=== PATIENT | female | born 1990 | race Caucasian/White ===

== ENCOUNTER 2019-08-10 23:10 | Emergency (ER) | payer BC, OTHER ==
[2019-08-10] MEDS ORDERED: METOCLOPRAMIDE 5 MG/ML 2 ML VIAL IVP STA (23:27)
[2019-08-10] MEDS ORDERED: SODIUM CHLORIDE 0.9% 1,000 ML IV ONE (23:27)
[2019-08-10] MEDS ORDERED: diphenhydrAMINE 50 MG/ML 1 ML VIAL IVP STA (23:27)
[2019-08-10] MEDS ORDERED: SODIUM CHLORIDE 0.9% 500 ML 500 ML IV ONE (23:27)
[2019-08-10 23:56] LABS: Basophils # (A) 0.1 k/uL (0-0.2); Basophils % (A) 1 %; Eosinophils # (A) 0.1 k/uL (0-0.7); Eosinophils % (A) 1 %; HCT 40.3 % (34.0-46.0); HGB 14.2 gm/dL (11.4-16.0); Lymphocytes # (A) 1.3 k/uL (1.0-4.8); Lymphocytes % (A) 14 %; MCH 32.6 pg (25.0-35.0); MCHC 35.2 g/dL (31.0-37.0); MCV 92.8 fL (80.0-100.0); Mean Platelet Volume 6.2; Monocytes # (A) 0.5 k/uL (0-1.0); Monocytes % (A) 5 %; Neutrophils # (A) 7.4 k/uL (1.3-7.7); Neutrophils % (A) 77 %; Platelet Count 177 k/uL (150-450); RBC 4.34 m/uL (3.80-5.40); RDW 12.4 % (11.5-15.5); WBC 9.6 k/uL (3.8-10.6)
[2019-08-11 00:08] LABS: Appearance,Urine Clear (Clear); Bacteria,Urine Occasional /hpf; Bilirubin,Urine Negative (Negative); Blood,Urine Negative (Negative); Color,Urine Yellow; Glucose,Urine (UA) Negative (Negative); Ketones,Urine Negative (Negative); Leukocyte Esterase,Urine Trace (Negative); Mucus,Urine Rare /hpf; Nitrite,Urine Negative (Negative); Protein,Urine Negative (Negative); RBC,Urine 1 /hpf (0-5); Squamous Epithelial Cell,Urine 14 /hpf (0-4); Urobilinogen,Urine <2.0 mg/dL (<2.0); WBC,Urine 2 /hpf (0-5)
[2019-08-11 00:14] LABS: ALT 14 U/L (9-52); AST 20 U/L (14-36); African American GFR (CKD) >90 (>60 ml/min/1.73 sqM); Albumin 4.4 g/dL (3.5-5.0); Alkaline Phosphatase 54 U/L (38-126); Amylase 41 U/L (30-110); Anion Gap 9 mmol/L; Blood Urea Nitrogen 8 mg/dL (7-17); Calcium 9.3 mg/dL (8.4-10.2); Carbon Dioxide 23 mmol/L (22-30); Chloride 104 mmol/L (98-107); Glucose 105 mg/dL (74-99); Sodium 136 mmol/L (137-145); Total Bilirubin 0.8 mg/dL (0.2-1.3); Total Protein 7.3 g/dL (6.3-8.2)
--- NOTE | 2019-08-11 00:40 | ED ---
General Adult HPI - General Chief complaint: ENT Stated complaint: 8 wks preg, sore throat Time Seen by Provider: 08/10/19 23:18 Source: patient Mode of arrival: ambulatory Limitations: no limitations - History of Present Illness Initial comments: 21-year-old female patient presents to the emergency department today for evaluation of vomiting and sore throat. Patient states she is approximately 8-9 weeks . States she's been having a lot of morning sickness. States today she's been unable to keep down any food or fluids. States that she's had several episodes of vomiting today and now has a sore throat. States she has increased pain with swallowing. States she did attempt to take Zofran however was unable to keep it down. She denies any abdominal pain. Denies any abnormal vaginal bleeding or discharge. Denies any low back pain. Denies any hematuria, dysuria, urinary frequency, urinary urgency. Patient denies any recent rash, fever, chills, shortness breath, chest pain, diarrhea, constipation, back pain, numbness, tingling, dizziness, weakness, headache, visual changes, or any other complaints. - Related Data Previous Rx's Medication Instructions Recorded Famotidine [Pepcid] 20 mg PO HS #30 tablet 08/11/19 Metoclopramide [Reglan] 10 mg PO Q8H PRN #30 tab 08/11/19 Allergies Allergy/AdvReac Type Severity Reaction Status Date / Time fluconazole [From Diflucan] Allergy Unknown Verified 08/10/19 23:16 Review of Systems ROS Statement: Those systems with pertinent positive or pertinent negative responses have been documented in the HPI. ROS Other: All systems not noted in ROS Statement are negative. Past Medical History Past Medical History: No Reported History History of Any Multi-Drug Resistant Organisms: None Reported Past Surgical History: No Surgical Hx Reported Past Psychological History: No Psychological Hx Reported Smoking Status: Former smoker Past Alcohol Use History: None Reported Past Drug Use History: None Reported General Exam Limitations: no limitations General appearance: alert, in no apparent distress, other (This is a well- developed, well-nourished adult female patient in no acute distress. Vital signs upon presentation are temperature 98.1F, pulse 71, respirations 16, blood pressure 119/77, pulse ox 99% on room air.) Eye exam: Present: normal appearance, PERRL, EOMI. Absent: scleral icterus, conjunctival injection, periorbital swelling ENT exam: Present: mucous membranes moist, TM's normal bilaterally. Absent: normal exam, normal oropharynx (Pharyngeal erythema) Neck exam: Present: normal inspection. Absent: tenderness, meningismus, lymphadenopathy Respiratory exam: Present: normal lung sounds bilaterally. Absent: respiratory distress, wheezes, rales, rhonchi, stridor Cardiovascular Exam: Present: regular rate, normal rhythm, normal heart sounds. Absent: systolic murmur, diastolic murmur, rubs, gallop, clicks GI/Abdominal exam: Present: soft, normal bowel sounds. Absent: distended, tenderness, guarding, rebound, rigid Neurological exam: Present: alert, oriented X3, CN II-XII intact Psychiatric exam: Present: normal affect, normal mood Skin exam: Present: warm, dry, intact, normal color. Absent: rash Course Vital Signs 08/10/19 08/11/19 23:12 01:13 Temperature 98.1 F 97.1 F L Pulse Rate 71 68 Respiratory 16 18 Rate Blood Pressure 119/77 108/63 O2 Sat by Pulse 99 99 Oximetry Medical Decision Making - Medical Decision Making 29-year-old female patient presents to the emergency department today for evalu ation of sore throat and vomiting. Patient is 8-9 weeks . Denies abdominal pain, vaginal discharge, vaginal bleeding. She is afebrile. Labs reviewed and are unremarkable. She is given IV fluids and nausea medication. No further vomiting in the emergency department. She'll be discharged home with this and follow-up the primary care physician for recheck in 1-2 days which is instructed to follow-up with her [facility] SPECIALIST for recheck in 12 days. Return parameters were discussed in detail. She verbalizes understanding and agrees with this plan. - Lab Data Result diagrams: 08/10/19 23:36 08/10/19 23:36 Lab Results 08/10/19 08/10/19 08/10/19 Range/Units 23:36 23:36 23:36 WBC 9.6 (3.8-10.6) k/uL RBC 4.34 (3.80-5.40) m/uL Hgb 14.2 (11.4-16.0) gm/dL Hct 40.3 (34.0-46.0) % MCV 92.8 (80.0-100.0) fL MCH 32.6 (25.0-35.0) pg MCHC 35.2 (31.0-37.0) g/dL RDW 12.4 (11.5-15.5) % Plt Count 177 (150-450) k/uL Neutrophils % 77 % Lymphocytes % 14 % Monocytes % 5 % Eosinophils % 1 % Basophils % 1 % Neutrophils # 7.4 (1.3-7.7) k/uL Lymphocytes # 1.3 (1.0-4.8) k/uL Monocytes # 0.5 (0-1.0) k/uL Eosinophils # 0.1 (0-0.7) k/uL Basophils # 0.1 (0-0.2) k/uL Sodium 136 L (137-145) mmol/L Potassium 4.0 (3.5-5.1) mmol/L Chloride 104 (98-107) mmol/L Carbon Dioxide 23 (22-30) mmol/L Anion Gap 9 mmol/L BUN 8 (7-17) mg/dL Creatinine 0.45 L (0.52-1.04) mg/dL Est GFR (CKD-EPI)AfAm >90 (>60 ml/min/1.73 sqM) Est GFR (CKD-EPI)NonAf >90 (>60 ml/min/1.73 sqM) Glucose 105 H (74-99) mg/dL Calcium 9.3 (8.4-10.2) mg/dL Total Bilirubin 0.8 (0.2-1.3) mg/dL AST 20 (14-36) U/L ALT 14 (9-52) U/L Alkaline Phosphatase 54 (38-126) U/L Total Protein 7.3 (6.3-8.2) g/dL Albumin 4.4 (3.5-5.0) g/dL Amylase 41 (30-110) U/L Lipase 75 (23-300) U/L Urine Color Yellow Urine Appearance Clear (Clear) Urine pH 6.0 (5.0-8.0) Ur Specific [place] 1.010 (1.001-1.035) Urine Protein Negative (Negative) Urine Glucose (UA) Negative (Negative) Urine Ketones Negative (Negative) Urine Blood Negative (Negative) Urine Nitrite Negative (Negative) Urine Bilirubin Negative (Negative) Urine Urobilinogen <2.0 (<2.0) mg/dL Ur Leukocyte Esterase Trace H (Negative) Urine RBC 1 (0-5) /hpf Urine WBC 2 (0-5) /hpf Ur Squamous Epith Cells 14 H (0-4) /hpf Urine Bacteria Occasional H (None) /hpf Urine Mucus Rare H (None) /hpf Disposition Clinical Impression: Pharyngitis, Morning sickness Disposition: HOME SELF-CARE Condition: Good Instructions (If sedation given, give patient instructions): Nausea and Vomiting in (ED), Pharyngitis (ED) Additional Instructions: Start with clear liquid diet and advance as tolerated. Take medications as directed. Follow-up with your primary care physician and [facility] SPECIALIST for recheck as soon as possible. Return to the emergency department immediately for any new, worsening, or concerning symptoms per Prescriptions: Famotidine [Pepcid] 20 mg PO HS #30 tablet Metoclopramide [Reglan] 10 mg PO Q8H PRN #30 tab PRN Reason: Vomiting Is patient prescribed a controlled substance at d/c from ED?: No Referrals: Imani Park MD [Primary Care Provider] - 1-2 days Justin Pacheco MD [STAFF PHYSICIAN] - 1-2 days Time of Disposition: 01:19
[2019-08-11 01:14] VITALS: BP 108/63; PULSE 68; RESP 18; TEMP 97.1
== END 2019-08-11 01:33 | disposition home or self-care (01) ==
LOC: EC 23:10
DX: O99.511 Diseases of the respiratory system complicating pregnancy, first trimester (principal); J02.9 Acute pharyngitis, unspecified; O21.0 Mild hyperemesis gravidarum; Z3A.09 9 weeks gestation of pregnancy; Z88.3 Allergy status to other anti-infective agents; Z87.891 Personal history of nicotine dependence
CPT/HCPCS: 36415; 80053; 82150; 83690; 85025; 99283; 96374; 96375; 96361; J1200; J2765; 81001

== ENCOUNTER 2020-03-10 05:59 | Inpatient (IN) | payer OTHER ==
[2020-03-09 13:37] VITALS: BMI 34.1
--- NOTE | 2020-03-09 16:49 | P.HPOB ---
History of Present Illness H&P Date: 03/09/20 Chief Complaint: Primary for macrosomia. This patient is a pleasant 30-year-old 1 para 0 female estimated date of confinement 03/17/2020 estimated gestational age 39-0/7 weeks who presents to labor and delivery for primary section secondary to macrosomia. Patient had an ultrasound done approximately 1 week ago showed estimated weight at 9 lbs. 13 oz.+ or minus half a pound. Due to the large size of this baby patient was offered a section for delivery due to the risk of vaginal delivery and she wishes to proceed. Patient's care initially was complicated by an ultrasound which showed some questionable echogenic bowel and prominent left ventricle. Level III ultrasound in maternal medicine ultrasound however was completely normal. Patient also was on a large dose of iodine in the first and second trimester which was given to her by her chiropractor. Upon finding this out myself and maternal- medicine instructed her to stop immediately. Patient's glucose testing has been normal. It appears this macrosomia secondary to genetics. Review of Systems Genitourinary: Reports Menstruation: Reports amenorrhea Past Medical History Past Medical History: GERD/Reflux Additional Past Medical History / Comment(s): frequent UTI's/kidney infections History of Any Multi-Drug Resistant Organisms: None Reported Past Surgical History: No Surgical Hx Reported Additional Past Surgical History / Comment(s): oral surgery Past Anesthesia/Blood Transfusion Reactions: No Reported Reaction Past Psychological History: No Psychological Hx Reported Smoking Status: Former smoker Past Alcohol Use History: None Reported Past Drug Use History: Marijuana - Past Family History Sister(s) Family Medical History: Pulmonary Embolus Medications and Allergies Home Medications Medication Instructions Recorded Confirmed Type Pnv No.95/Ferrous Fum/Folic AC 1 each PO DAILY 03/09/20 03/09/20 History [ Multivitamin Tablet] Allergies Allergy/AdvReac Type Severity Reaction Status Date / Time fluconazole [From Diflucan] Allergy swelling,hives,itching Verified 03/09/20 13:31 all over Exam Intake and Output 03/09/20 03/09/20 03/09/20 06:59 14:59 22:59 Other: Weight 100.244 kg - OBG Physical Exam Vulva: both: normal Vagina: normal moisture, no discharge Cervix: no lesion, no discharge Uterus: enlarged (Fundal height 43 cm) Results blood work shows she is O-, rubella immune, RPR nonreactive, hepatitis B negative, Glucola was normal, RhoGAM was given on December 14. Level III ultrasound was normal. Most recent ultrasound about a week ago showed estimated weight at 9 lbs. 13 oz. Assessment and Plan Assessment: This is a pleasant 30-year-old 1 para 0 female 39-0/7 weeks gestation with excessive macrosomia estimated weight between 9-1/2 and 10-1/2 pounds. Patient I have discussed options for delivery we've elected to proceed with primary section for delivery. She does understand the risks of the surgery including risks of infection, bleeding, possible injury bowel, bladder, vessels, and/or other organs. All the patient's questions are answered and a written consent is obtained. (1) 39 weeks gestation of Status: Acute Code(s): Z3A.39 - 39 WEEKS GESTATION OF SNOMED Code(s): 43789916 (2) macrosomia Status: Acute Code(s): O36.60X0 - MATERNAL CARE FOR EXCESS GROWTH, UNSP TRIMESTER, UNSP SNOMED Code(s): 93083081 (3) Rh negative status during Status: Acute Code(s): O26.899 - OTH RELATED CONDITIONS, UNSPECIFIED TRIMESTER; Z67.91 - UNSPECIFIED BLOOD TYPE, RH NEGATIVE SNOMED Code(s): 089049978
[2020-03-10] MEDS ORDERED: LACTATED RINGERS 1,000 ML IV SCH ×2 (06:15→08:45)
[2020-03-10] MEDS ORDERED: CITRIC ACID-SODIUM CITRATE 15 ML CUP PO ONE (06:15)
[2020-03-10] MEDS ORDERED: LACTATED RINGERS 1,000 ML IV ONE (06:15)
[2020-03-10 07:05] LABS: Basophils % (A) 0 %; Eosinophils # (A) 0.1 k/uL (0-0.7); Eosinophils % (A) 1 %; HCT 36.3 % (34.0-46.0); HGB 11.8 gm/dL (11.4-16.0); Lymphocytes # (A) 1.5 k/uL (1.0-4.8); Lymphocytes % (A) 15 %; MCH 31.4 pg (25.0-35.0); MCHC 32.6 g/dL (31.0-37.0); MCV 96.3 fL (80.0-100.0); Mean Platelet Volume 9.6; Monocytes # (A) 0.5 k/uL (0-1.0); Monocytes % (A) 5 %; Neutrophils # (A) 7.8 k/uL (1.3-7.7); Neutrophils % (A) 77 %; Platelet Count 168 k/uL (150-450); RBC 3.77 m/uL (3.80-5.40); RDW 13.5 % (11.5-15.5)
[2020-03-10] MEDS ORDERED: KETOROLAC 30 MG/ML 1 ML VIAL ONE (07:56)
[2020-03-10] MEDS ORDERED: ONDANSETRON 4 MG/2 ML VIAL ONE (07:56)
[2020-03-10] MEDS ORDERED: MORPHINE SULFATE (PF) 0.3 MG/0.3 ML SYR ONE (07:56)
[2020-03-10] MEDS ORDERED: OXYTOCIN 10 UNIT/ML 1 ML VIAL ONE (07:56)
[2020-03-10] MEDS ORDERED: SIMETHICONE 80 MG CHEWABLE PO PRN (08:44)
[2020-03-10] MEDS ORDERED: IBUPROFEN 600 MG TAB PO PRN (08:44)
[2020-03-10] MEDS ORDERED: diphenhydrAMINE 50 MG/ML 1 ML VIAL IVP PRN (08:44)
[2020-03-10] MEDS ORDERED: Rhogam IMMUNE GLOBULIN 1,500 UNIT/1 ML IM ONE (08:44)
[2020-03-10] MEDS ORDERED: diphenhydrAMINE 25 MG CAP PO PRN (08:44)
[2020-03-10] MEDS ORDERED: ACETAMINOPHEN TAB 325 MG TAB PO PRN (08:44)
[2020-03-10] MEDS ORDERED: HYDROcodone/APAP 5-325MG 1 EACH TAB PO PRN (08:44)
[2020-03-10] MEDS ORDERED: NALOXONE 0.4 MG/ML 1 ML VIAL IV PRN (08:44)
[2020-03-10] MEDS ORDERED: ONDANSETRON 4 MG/2 ML VIAL IVP PRN (08:44)
[2020-03-10] MEDS ORDERED: ZOLPIDEM 5 MG TAB PO PRN (08:44)
[2020-03-10] MEDS ORDERED: METOCLOPRAMIDE 5 MG/ML 2 ML VIAL IVP PRN (08:44)
[2020-03-10] MEDS ORDERED: LANOLIN CREAM 5 GM TUBE TOPICAL PRN (08:44)
[2020-03-10] MEDS ORDERED: OXYTOCIN 20 UNITS/1000 ML NS 1,000 ML IV SCH (08:45)
--- NOTE | 2020-03-10 09:05 | P.OP ---
Date of Procedure: 03/10/20 Preoperative Diagnosis: #1: 39-0/7 weeks . #2: macrosomia. Postoperative Diagnosis: Same, moderate meconium-stained fluid, nuchal cord 1 Procedure(s) Performed: Primary low transverse section Anesthesia: spinal Surgeon: Justin Pacheco Chief Of Party #1: Jayde Gómez Estimated Blood Loss (ml): 1,450 Pathology: other (Placenta) Condition: stable Disposition: floor Indications for Procedure: Please see dictated H&P for intimate details of this patient's admission. Brief summary this is a pleasant 30-year-old 1 para 0 female estimated gestational age 39 weeks who presents to labor and delivery for primary section due to suspected macrosomia. Patient had a ultrasound done last week which showed estimated weight of 9 lbs. 13 oz. which is much greater than the 90th percentile. I discussed this with the patient and we elected to proceed with primary section for delivery. Patient understands this surgery and risks including risks of infection, bleeding, possible injury to bowel, bladder, vessels, and/or other organs. Patient understands risk of DVT and pulmonary embolism. All the patient's questions are answered and a written consent is obtained. Operative Findings: This is a vigorous viable male Apgars 9 and 9 delivery time is 0812 hours. 's weight was 10 lbs. 3 oz. which is 4620 g. There was a nuchal cord 1 and moderate meconium-stained fluid. Description of Procedure: This patient has a Pierson catheter placed to straight drain. She is subsequently taken to the operating room where she sat up and spinal anesthetic is administered without incident. With an adequate level of anesthesia she has abdominal prep and drape. Scalpels taken Pfannenstiel skin incision is made. A second scalpel is taken down the fascia and the fascia scored with a knife. Fascial incision extended bilaterally using the [place] scissors. Fascia is dissected off the rectus muscle sharply. Rectus muscles are and the peritoneum identified and entered sharply. Peritoneal incision extended superior and inferior without difficulty. Bladder blade is then placed. Bladder peritoneum was taken sharply off the lower uterine segment. Scalpels and taken a low transverse uterine incision is made. Using a hemostat I into the uterine cavity bluntly. There is loss of a copious amount of moderate meconium-stained fluid. The uterine incision extended bluntly. The infant's head is then guided through the incision with fundal pressure. Mouth and nares are bulb suctioned. There is a nuchal cord which is loose and reduced. This done the rest this 's body is delivered with fundal pressure. This is a vigorous viable male Apgars 9 and 9 delivery time was 0812 hours. Infant has spontaneous respiration and good cry. After delivery of the infant the umbilical cord is doubly clamped and cut and the baby is handed off to the nurses in attendance. Placenta is then manually extracted intact. Uterus then externalized and uterine incision demarcated with Yoon clamps. Uterine cavity is cleared of all debris. Uterine incision is then closed using 0 Vicryl running locked fashion 2 layers. Excellent hemostasis is noted. Bladder peritoneum was then reapproximated using a 3-0 Vicryl. Excess fluid is removed from the abdomen and pelvis. Uterus tubes and ovaries appear normal for term gestation. Uterus placed back into the abdomen. Parietal peritoneum was then identified and closed using 0 Vicryl running fashion. Rectus muscles reapproximated in 0 Vicryl interrupted fashion. Fascia is then closed using a 0 PDS in running fashion. Fascial incision is intact and hemostatic. Subcutaneous tissues then closed using a 3-0 Vicryl. Skin is and closed using sal. All counts are correct 3. No complications. Quantitative estimated blood loss approximate 1450 mL.
[2020-03-10] MEDS ORDERED: METHYLERGONOVINE 0.2 MG/ML 1 ML AMP IM ONE (09:46)
--- NOTE | 2020-03-10 10:18 | P.PN ---
Progress Note - Text Progress Note Date: 03/10/20 Patient developed some atony and in the room I was able to express several large clots with total estimated blood loss of 800 at that time. Patient given a dose of Methergine and continued IV Pitocin. I was able to continue massage and the bleeding subsided. Vital signs are stable. Patient is relatively asymptomatic at this time. Plan is to continue watch closely, continue some oral Methergine for 24 hours, and began some oral iron tomorrow.
[2020-03-10] MEDS: METHYLERGONOVINE 0.2 MG TAB PO SCH ×2 (14:13→22:34)
[2020-03-10] MEDS: KETOROLAC 30 MG/ML 1 ML VIAL IVP PRN ×2 (14:18→20:34)
[2020-03-10] MEDS: SENNOSIDES-DOCUSATE SODIUM 1 EACH TAB PO SCH (23:37)
[2020-03-11 05:43] VITALS: RESP 16
[2020-03-11 05:47] LABS: Basophils % (A) 0 %; Eosinophils # (A) 0.1 k/uL (0-0.7); Eosinophils % (A) 1 %; HCT 28.6 % (34.0-46.0); Lymphocytes # (A) 1.3 k/uL (1.0-4.8); Lymphocytes % (A) 12 %; MCHC 32.8 g/dL (31.0-37.0); MCV 97.6 fL (80.0-100.0); Mean Platelet Volume 8.8; Monocytes # (A) 0.7 k/uL (0-1.0); Monocytes % (A) 7 %; Neutrophils % (A) 78 %; Platelet Count 148 k/uL (150-450); RBC 2.93 m/uL (3.80-5.40); RDW 13.6 % (11.5-15.5); WBC 10.2 k/uL (3.8-10.6)
[2020-03-11 05:55] LABS: HGB 9.4 gm/dL (11.4-16.0)
--- NOTE | 2020-03-11 07:49 | P.PNOBGPC ---
Subjective - Subjective Principal diagnosis: Status post primary low transverse day #1 Interval history: Patient seen and examined. Denies nausea, vomiting, chest pain, shortness of breath or any calf pain. Patient reports: Reports appetite normal, Reports voiding normally, Reports pain well controlled, Reports ambulating normally [place]: doing well Objective - Vital Signs Latest vital signs: Vital Signs Temp Pulse Resp BP Pulse Ox 03/11/20 04:00 97.6 F 83 16 117/68 98 03/10/20 23:23 74 18 03/10/20 23:20 97.5 F L 74 18 105/65 98 03/10/20 20:00 97.6 F 87 16 123/72 98 03/10/20 16:00 97.0 F L 80 18 122/67 98 03/10/20 12:00 96 F L 78 20 121/67 100 03/10/20 10:40 70 18 127/67 99 03/10/20 10:10 87 18 152/65 100 03/10/20 09:40 68 18 110/75 100 03/10/20 09:25 64 18 108/69 100 03/10/20 09:05 98.0 F 76 18 114/70 100 03/10/20 08:55 72 20 120/67 100 03/10/20 08:40 69 18 141/68 100 Intake and Output 03/10/20 03/11/20 03/11/20 22:59 06:59 14:59 Intake Total 1000 200 Output Total 450 400 Balance 550 -200 Intake: IV 1000 200 Output: Urine 450 400 - Exam Lungs: bilateral: normal Chest: Normal S1, Normal S2 Extremities: Present: normal Abdomen: Present: normal appearance, soft. Absent: distention, tenderness Incision: Present: normal, dry, intact Uterus: Present: normal, firm - Labs Labs: Abnormal Lab Results - Last 24 Hours (Table) 03/11/20 Range/Units 05:30 RBC 2.93 L (3.80-5.40) m/uL Hgb 9.4 L D (11.4-16.0) gm/dL Hct 28.6 L (34.0-46.0) % Plt Count 148 L (150-450) k/uL Neutrophils # 8.0 H (1.3-7.7) k/uL Assessment and Plan (1) Status post primary low transverse section Current Visit: Yes Status: Acute Code(s): Z98.891 - HISTORY OF UTERINE SCAR FROM PREVIOUS SURGERY SNOMED Code(s): 400061818 Plan: 1. By mouth pain medication 2. Increase ambulation 3. Regular diet
--- NOTE | 2020-03-11 07:58 | P.PN ---
Progress Note - Text Progress Note Date: 03/11/20 (665) Anesthesia Postop day 1 Subjective: Status Post section with Duramorph. Patient seen and examined. Doing well without complaint. VAS 0-2 out of 10. No nausea or vomiting. Mild pruritus tolerable.. Afebrile. Gross lower extremity strength intact. Spinal site intact without induration. Without apparent anesthetic complications. Objective: Vital signs reviewed Heart: Regular Rate Lungs: Good chest excursion Abdomen: Appears nondistended Assessment: Status post with Duramorph postop day 1 Plan: Continue current care with your medical management.
[2020-03-11] MEDS: SENNOSIDES-DOCUSATE SODIUM 1 EACH TAB PO SCH ×2 (08:52→19:47)
[2020-03-11] MEDS: METHYLERGONOVINE 0.2 MG TAB PO SCH (08:52)
[2020-03-11] MEDS ORDERED: IRON AG/C/B12/CA/SUC.ACID/STOM 1 EACH TAB PO SCH (09:00)
--- NOTE | 2020-03-12 03:30 | P.DS ---
Providers Date of admission: 03/10/20 05:59 Expected date of discharge: 03/12/20 Attending physician: Justin Pacheco Primary care physician: Imani Park - Discharge Diagnosis(es) (1) Status post primary low transverse section Current Visit: Yes Status: Acute Hospital Course: Pt presented for 1*LTCS. She underwent this procedure without complications. Her po course was uneventful. She denies N/V, F/C, CP, SOB or calf pain. she will be discharged home PPD #1 in stable condition to follow up with Dr Pacheco in 1 week. Plan - Discharge Summary Discharge Rx Participant: Yes New Discharge Prescriptions: New Ibuprofen [Motrin] 600 mg PO Q6HR PRN #40 tab PRN Reason: Mild Pain Or Fever >= 100.5 Iron Ag/C/B12/Ca/Suc.acid/Stom [Multigen] 1 each PO DAILY #30 tab HYDROcodone/APAP 5-325MG [[place] 5-325] 1 each PO Q4HR PRN #18 tab PRN Reason: Moderate Pain No Action Pnv No.95/Ferrous Fum/Folic AC [ Multivitamin Tablet] 1 each PO DAILY Discharge Medication List Pnv No.95/Ferrous Fum/Folic AC [ Multivitamin Tablet] 1 each PO DAILY 03/09/20 [History] HYDROcodone/APAP 5-325MG [[place] 5-325] 1 each PO Q4HR PRN #18 tab 03/10/20 [Rx] Ibuprofen [Motrin] 600 mg PO Q6HR PRN #40 tab 03/10/20 [Rx] Iron Ag/C/B12/Ca/Suc.acid/Stom [Multigen] 1 each PO DAILY #30 tab 03/10/20 [Rx] Follow up Appointment(s)/Referral(s): Justin Pacheco MD [STAFF PHYSICIAN] - 1 Week Patient Instructions/Handouts: Iron Deficiency Anemia (DC), (DC) Activity/Diet/Wound Care/Special Instructions: No strenuous activities or heavy lifting for 6 weeks. No intercourse or anything per vagina for 6 weeks. Please call if any fever, chills, excessive vaginal bleeding, and/or abdominal pain. Discharge Disposition: HOME SELF-CARE
[2020-03-12 08:52] VITALS: BP 114/73; PULSE 94; TEMP 97.8
[2020-03-12] MEDS: SENNOSIDES-DOCUSATE SODIUM 1 EACH TAB PO SCH (08:54)
== END 2020-03-12 10:12 | disposition home or self-care (01) | DRG 788 ==
LOC: 4FBP 05:59
PROVIDERS: ADMIT Obstetrics & Gynecology; ATTEND Obstetrics & Gynecology
PROC: 3E0334Z Introduction of Serum, Toxoid and Vaccine into Peripheral Vein, Percutaneous Approach (ICD-10-PCS; 2020-03-10)
PROC: 10D00Z1 Extraction of Products of Conception, Low, Open Approach (ICD-10-PCS; principal; 2020-03-10 08:00)
DX: O36.63X0 Maternal care for excessive fetal growth, third trimester, not applicable or unspecified (principal); O69.81X0 Labor and delivery complicated by cord around neck, without compression, not applicable or unspecified; O77.0 Labor and delivery complicated by meconium in amniotic fluid; L29.9 Pruritus, unspecified; Z37.0 Single live birth; Z3A.39 39 weeks gestation of pregnancy; Z67.91 Unspecified blood type, Rh negative; Z87.440 Personal history of urinary (tract) infections; Z87.891 Personal history of nicotine dependence
CPT/HCPCS: 85025; 85461; 86850; 86900; 86901; 88307

== ENCOUNTER 2021-01-30 18:24 | Emergency (ER) | payer OTHER ==
[2021-01-30 18:29] VITALS: PULSE 82
[2021-01-30 19:24] LABS: Appearance,Urine Clear (Clear); Basophils # (A) 0.1 k/uL (0-0.2); Basophils % (A) 1 %; Bilirubin,Urine Negative (Negative); Blood,Urine Negative (Negative); Color,Urine Colorless; Eosinophils # (A) 0.2 k/uL (0-0.7); Eosinophils % (A) 2 %; Glucose,Urine (UA) Negative (Negative); HCT 44.2 % (34.0-46.0); Ketones,Urine Negative (Negative); Leukocyte Esterase,Urine Negative (Negative); Lymphocytes # (A) 2.1 k/uL (1.0-4.8); Lymphocytes % (A) 30 %; MCH 30.9 pg (25.0-35.0); Mean Platelet Volume 7.3; Monocytes # (A) 0.3 k/uL (0-1.0); Monocytes % (A) 4 %; Neutrophils # (A) 4.3 k/uL (1.3-7.7); Neutrophils % (A) 61 %; Nitrite,Urine Negative (Negative); PH, Urine 6.5 (5.0-8.0); Platelet Count 247 k/uL (150-450); Protein,Urine Negative (Negative); RBC 4.86 m/uL (3.80-5.40); RDW 14.1 % (11.5-15.5); Specific Gravity,Urine 1.001 (1.001-1.035); Urobilinogen,Urine <2.0 mg/dL (<2.0); WBC 7.1 k/uL (3.8-10.6)
[2021-01-30] MEDS ORDERED: Rhogam IMMUNE GLOBULIN 1,500 UNIT/1 ML IM ONE (19:43)
[2021-01-30 19:46] LABS: ALT 10 U/L (4-34); AST 24 U/L (14-36); African American GFR (CKD) >90 (>60 ml/min/1.73 sqM); Albumin 4.9 g/dL (3.5-5.0); Alkaline Phosphatase 76 U/L (38-126); Anion Gap 10 mmol/L; Blood Urea Nitrogen 10 mg/dL (7-17); Calcium 10.1 mg/dL (8.4-10.2); Carbon Dioxide 22 mmol/L (22-30); Chloride 108 mmol/L (98-107); Glucose 102 mg/dL (74-99); Non-African American GFR(CKD) >90 (>60 ml/min/1.73 sqM); Potassium 3.9 mmol/L (3.5-5.1); Sodium 140 mmol/L (137-145); Total Bilirubin 1.3 mg/dL (0.2-1.3); Total Protein 8.2 g/dL (6.3-8.2)
[2021-01-30 20:03] LABS: HCG,Quantitative Serum <2.4 mIU/mL
--- NOTE | 2021-01-30 20:57 | US ---
EXAMINATION TYPE: Transabdominal DATE OF EXAM: 01/30/2021 8:34 PM COMPARISON: US, this is first US for this . CLINICAL HISTORY: pain. Bleeding x 3 days. Hx . Pain per order. . EXAM PERFORMED: Transabdominal (TA) EXAM MEASUREMENTS: GESTATIONAL AGE / DATING Physician Established: Not yet established. Dates by LMP: (6 weeks/3 days) EDC: 09/22/2021 Dates by First Scan: This is first scan. Dates by Current Scan for: No definite IUP seen at this time. Possible small gestational sac measure s out of range. MATERNAL ANATOMY Uterus: 8.8 x 6.1 x 4.0 cm. Small amount of fluid seen in upper endometrium: 0.4 x 0.7 x 0.1 cm. Right Ovary: 3.1 x 1.7 x 1.8 cm. Follicles seen. Left Ovary: 3.7 x 1.9 x 2.0 cm. Follicles seen. Post CDS / Adnexa: Appear wnl. Presence of free fluid: No Presence of corpus luteal cyst: Not seen with certainty. GESTATION / SURVEY Small fluid appearing area in endometrium seen. IUP: No definite IUP seen at this time Date of LMP: 12/16/2020 Beta HcG (if available): Not available. IMPRESSION: Small endometrial fluid. Otherwise no definite intrauterine . Recommend serial beta hCG measurement and follow-up siri ging as indicated.
--- NOTE | 2021-01-30 21:24 | ED ---
Female Urogenital HPI - General Chief complaint: Vaginal Bleeding Stated complaint: approx 6wks preg, bleeding Time Seen by Provider: 01/30/21 18:53 Source: patient Mode of arrival: ambulatory Limitations: no limitations - History of Present Illness Initial comments: Patient is a 31-year-old female who is currently approximately 6-7 weeks who presents to the emergency department with reported vaginal bleeding. Patient states that she has had slight tinged vaginal bleeding since Friday. Her last menstrual cycle was December 16. Reports that she normally has regular menstrual cycles. She did take a home test on January 20 and then again on the and they were both positive. She called yesterday to make an appointment with her [employer] [employer] Dr. Pacheco. States that she is still awaiting appointment. As the patient continued to have bleeding she did come to the emergency room for evaluation. She denies any abdominal cramping. No dysuria, hematuria or double voiding. Denies diarrhea, cuts patient, stools or hematochezia. Denies any normal vaginal discharge or concern for sexually transmitted infections. Patient is Rh-. No other alleviating, precipitating or modifying factors Last Menstrual Period: 12/16/20 - Related Data Home Medications Medication Instructions Recorded Confirmed Pnv No.95/Ferrous Fum/Folic AC 1 each PO DAILY 03/09/20 03/10/20 [ Multivitamin Tablet] Previous Rx's Medication Instructions Recorded HYDROcodone/APAP 5-325MG [[place] 1 each PO Q4HR PRN #18 tab 03/10/20 5-325] Ibuprofen [Motrin] 600 mg PO Q6HR PRN #40 tab 03/10/20 Iron Ag/C/B12/Ca/Suc.acid/Stom 1 each PO DAILY #30 tab 03/10/20 [Multigen] Allergies Allergy/AdvReac Type Severity Reaction Status Date / Time fluconazole [From Diflucan] Allergy swelling,hives,itching Verified 01/30/21 18:29 all over Review of Systems ROS Statement: Those systems with pertinent positive or pertinent negative responses have been documented in the HPI. ROS Other: All systems not noted in ROS Statement are negative. Past Medical History Past Medical History: GERD/Reflux Additional Past Medical History / Comment(s): frequent UTI's/kidney infections History of Any Multi-Drug Resistant Organisms: None Reported Past Surgical History: Section Additional Past Surgical History / Comment(s): oral surgery Past Anesthesia/Blood Transfusion Reactions: No Reported Reaction Past Psychological History: No Psychological Hx Reported Smoking Status: Current every day smoker Past Alcohol Use History: None Reported Past Drug Use History: Marijuana - Past Family History Sister(s) Family Medical History: Pulmonary Embolus Additional Family Medical History / Comment(s): pt states that the PE was with her sister's 3rd Father History Unknown: Yes Mother Family Medical History: Hypertension General Exam Limitations: no limitations General appearance: alert, in no apparent distress Head exam: Present: atraumatic, normocephalic, normal inspection Eye exam: Present: normal appearance, PERRL, EOMI. Absent: scleral icterus, conjunctival injection, periorbital swelling ENT exam: Present: normal exam, mucous membranes moist Neck exam: Present: normal inspection. Absent: tenderness, meningismus, lymphadenopathy Respiratory exam: Present: normal lung sounds bilaterally. Absent: respiratory distress, wheezes, rales, rhonchi, stridor Cardiovascular Exam: Present: regular rate, normal rhythm, normal heart sounds. Absent: systolic murmur, diastolic murmur, rubs, gallop, clicks GI/Abdominal exam: Present: soft, normal bowel sounds. Absent: distended, te nderness, guarding, rebound, rigid Extremities exam: Present: normal inspection, full ROM, normal capillary refill. Absent: tenderness, pedal edema, joint swelling, calf tenderness Back exam: Present: normal inspection Neurological exam: Present: alert, oriented X3, CN II-XII intact Psychiatric exam: Present: normal affect, normal mood Skin exam: Present: warm, dry, intact, normal color. Absent: rash Course Vital Signs 01/30/21 01/30/21 18:27 21:38 Temperature 97.9 F 97.3 F L Pulse Rate 82 82 Respiratory 20 16 Rate Blood Pressure 127/78 126/70 O2 Sat by Pulse 100 99 Oximetry Medical Decision Making - Medical Decision Making Upon arrival patient is placed into room 26. A thorough history and physical exam was performed. Laboratory studies were conducted and the patient does have an ultrasound performed. Laboratory studies are reviewed and the patient's beta hCG is less than 2.4. Ultrasound is performed which does demonstrate some fluid within the endometrial canal. The patient is O-. I did discuss the diagnosis, differential treatment options. As the patient reports a positive home test 2 with now no signs of a I am concerned that the patient may have had a miscarriage. I discussed treatment with RhoGAM as at this time I cannot identify that the patient was truly . Patient does agree to Rhogam administration at this time. Patient is instructed that she needs to call tomorrow and see her OBGYN for follow up within 1- 2 weeks. Return to the emergency room for any new or worsening symptoms. Patient agree to this was discharged home in stable condition - Lab Data Result diagrams: 01/30/21 19:07 01/30/21 19:07 Lab Results 01/30/21 01/30/21 01/30/21 Range/Units 19:05 19: 19:07 WBC 7.1 (3.8-10.6) k/uL RBC 4.86 (3.80-5.40) m/uL Hgb 15.0 (11.4-16.0) gm/dL Hct 44.2 (34.0-46.0) % MCV 91.0 (80.0-100.0) fL MCH 30.9 (25.0-35.0) pg MCHC 34.0 (31.0-37.0) g/dL RDW 14.1 (11.5-15.5) % Plt Count 247 (150-450) k/uL MPV 7.3 Neutrophils % 61 % Lymphocytes % 30 % Monocytes % 4 % Eosinophils % 2 % Basophils % 1 % Neutrophils # 4.3 (1.3-7.7) k/uL Lymphocytes # 2.1 (1.0-4.8) k/uL Monocytes # 0.3 (0-1.0) k/uL Eosinophils # 0.2 (0-0.7) k/uL Basophils # 0.1 (0-0.2) k/uL Sodium (137-145) mmol/L Potassium (3.5-5.1) mmol/L Chloride (98-107) mmol/L Carbon Dioxide (22-30) mmol/L Anion Gap mmol/L BUN (7-17) mg/dL Creatinine (0.52-1.04) mg/dL Est GFR (CKD-EPI)AfAm (>60 ml/min/1.73 sqM) Est GFR (CKD-EPI)NonAf (>60 ml/min/1.73 sqM) Glucose (74-99) mg/dL Calcium (8.4-10.2) mg/dL Total Bilirubin (0.2-1.3) mg/dL AST (14-36) U/L ALT (4-34) U/L Alkaline Phosphatase (38-126) U/L Total Protein (6.3-8.2) g/dL Albumin (3.5-5.0) g/dL HCG, Quant mIU/mL Urine Color Colorless Urine Appearance Clear (Clear) Urine pH 6.5 (5.0-8.0) Ur Specific Robinson 1.001 (1.001-1.035) Urine Protein Negative (Negative) Urine Glucose (UA) Negative (Negative) Urine Ketones Negative (Negative) Urine Blood Negative (Negative) Urine Nitrite Negative (Negative) Urine Bilirubin Negative (Negative) Urine Urobilinogen <2.0 (<2.0) mg/dL Ur Leukocyte Esterase Negative (Negative) Blood Type O Negative Blood Type Recheck O Neg Bld Type Recheck Status No Antibody Screen NEGATIVE 01/30/21 Range/Units 19:07 WBC (3.8-10.6) k/uL RBC (3.80-5.40) m/uL Hgb (11.4-16.0) gm/dL Hct (34.0-46.0) % MCV (80.0-100.0) fL MCH (25.0-35.0) pg MCHC (31.0-37.0) g/dL RDW (11.5-15.5) % Plt Count (150-450) k/uL MPV Neutrophils % % Lymphocytes % % Monocytes % % Eosinophils % % Basophils % % Neutrophils # (1.3-7.7) k/uL Lymphocytes # (1.0-4.8) k/uL Monocytes # (0-1.0) k/uL Eosinophils # (0-0.7) k/uL Basophils # (0-0.2) k/uL Sodium 140 (137-145) mmol/L Potassium 3.9 (3.5-5.1) mmol/L Chloride 108 H (98-107) mmol/L Carbon Dioxide 22 (22-30) mmol/L Anion Gap 10 mmol/L BUN 10 (7-17) mg/dL Creatinine 0.71 (0.52-1.04) mg/dL Est GFR (CKD-EPI)AfAm >90 (>60 ml/min/1.73 sqM) Est GFR (CKD-EPI)NonAf >90 (>60 ml/min/1.73 sqM) Glucose 102 H (74-99) mg/dL Calcium 10.1 (8.4-10.2) mg/dL Total Bilirubin 1.3 (0.2-1.3) mg/dL AST 24 (14-36) U/L ALT 10 (4-34) U/L Alkaline Phosphatase 76 (38-126) U/L Total Protein 8.2 (6.3-8.2) g/dL Albumin 4.9 (3.5-5.0) g/dL HCG, Quant <2.4 mIU/mL Urine Color Urine Appearance (Clear) Urine pH (5.0-8.0) Ur Specific Robinson (1.001-1.035) Urine Protein (Negative) Urine Glucose (UA) (Negative) Urine Ketones (Negative) Urine Blood (Negative) Urine Nitrite (Negative) Urine Bilirubin (Negative) Urine Urobilinogen (<2.0) mg/dL Ur Leukocyte Esterase (Negative) Blood Type Blood Type Recheck Bld Type Recheck Status Antibody Screen Disposition Clinical Impression: Abnormal vaginal bleeding Disposition: HOME SELF-CARE Condition: Stable Instructions (If sedation given, give patient instructions): Dysmenorrhea (ED) Additional Instructions: Please call your OBGYN to make an appointment. Return to the ED for any new or worsening symptoms. You were given Rhogam in the ER today. Is patient prescribed a controlled substance at d/c from ED?: No Referrals: None,Stated [Primary Care Provider] - 1-2 days Justin Pacheco MD [STAFF PHYSICIAN] - 1-2 days Time of Disposition: 21:26
[2021-01-30 21:40] VITALS: BP 126/70; RESP 16; TEMP 97.3
== END 2021-01-30 21:40 | disposition home or self-care (01) ==
LOC: EC 18:24
DX: O20.9 Hemorrhage in early pregnancy, unspecified (principal); O99.331 Smoking (tobacco) complicating pregnancy, first trimester; F17.200 Nicotine dependence, unspecified, uncomplicated; F12.90 Cannabis use, unspecified, uncomplicated; Z3A.01 Less than 8 weeks gestation of pregnancy
CPT/HCPCS: 36415; 86900; 86901; 80053; 85025; 86850; 81003; 84702; 76801; 76817; 99284; 96372; J2791

== ENCOUNTER → 2021-07-09 | Outpatient (CLI) | payer OTHER ==
--- NOTE | 2021-07-09 16:10 | US ---
EXAMINATION TYPE: Transabdominal DATE OF EXAM: 07/09/2021 3:51 PM COMPARISON: NONE CLINICAL HISTORY: Z36 CONFIRM DATES. EXAM PERFORMED: Transabdominal (TA) EXAM MEASUREMENTS: GESTATIONAL AGE / DATING Physician Established: (13 weeks/ 6 days) EDC: 01-08-22 Dates by LMP:(13 weeks/ 6 days) EDC: 01-08-22 Dates by First Scan: No previous this is first scan Dates by Current Scan for: (14 weeks/4 days) EDC: 01-08-21 MATERNAL ANATOMY Uterus: 16.2 x 7.1 x 11.7cm Right Ovary: obscured by overlying bowel Left Ovary: 2.3 x 1.6 x 2.8cm Post CDS / Adnexa: wnl Presence of free fluid: no GESTATION / SURVEY CRL: 8.7 (14 weeks/4 days) Yolk Sac (normal less than 6mm): not seen Heart Rate: 167 bpm Rhythm: Normal IUP: Viable IUP Age Appropriate Anatomy Limbs: Visualized Calvarium: Visualized Date of LMP: 04-03-21 IMPRESSION: Single viable intrauterine corresponding to an ultrasound age 14 weeks 4 days with estimate d date of delivery 01/03/2022 by today's exam, Limited survey
== END | disposition home or self-care (01) ==
LOC: RADUSWWP 15:27
PROVIDERS: ATTEND Obstetrics & Gynecology
DX: Z34.91 Encounter for supervision of normal pregnancy, unspecified, first trimester (principal); Z3A.14 14 weeks gestation of pregnancy
CPT/HCPCS: 76801